=== PATIENT | male | born 2000 | race Caucasian/White ===

== ENCOUNTER 2022-03-28 15:59 | Emergency (ER) | payer SELFPAY ==
[2022-03-28 16:00] VITALS: BP 159/90; PULSE 98; RESP 20; TEMP 35.4; O2SAT 96; BMI 34.4
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
[2022-03-28] MEDS: HYDROcodone Bitartrate/Apap 5/325 Tablet PO (17:03)
[2022-03-28 17:48] VITALS: BP 124/74; PULSE 82; RESP 16; O2SAT 98
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
== END 2022-03-28 17:50 | disposition home or self-care (01) ==
LOC: ED 17:42
PROVIDERS: Emergency Provider Emergency Medicine; Visit Provider Emergency Medicine
DX: S09.90XA Unspecified injury of head, initial encounter (principal); S40.022A Contusion of left upper arm, initial encounter; F17.210 Nicotine dependence, cigarettes, uncomplicated; V43.52XA Car driver injured in collision with other type car in traffic accident, initial encounter; Y92.410 Unspecified street and highway as the place of occurrence of the external cause; M54.89 Other dorsalgia
CPT/HCPCS: 70450; 71046; 72125; 73060; 99284